=== PATIENT | female | born 1945 | race Caucasian/White ===

== ENCOUNTER → 2016-08-31 | Outpatient (CLI) | payer MEDICARE, OTHER ==
[~2016-08-31] MED LIST: ALPR-475 PO; ASPI-621 PO; ATEN50TA41 PO; ERGO500017 PO; HYDR12.58 PO; IRBE150T25 PO; LEVO75TA33 PO; NAPR500T PO; PRAS10TA4 PO; RITU10VI IV; vitamin b12 IM
== END | disposition home or self-care (01) ==
LOC: RAD 10:18
PROVIDERS: ATTEND Internal Medicine
DX: E27.9 Disorder of adrenal gland, unspecified (principal)
CPT/HCPCS: 71260

== ENCOUNTER → 2016-11-25 | Outpatient (CLI) | payer MEDICARE, OTHER ==
[~2016-11-25] MED LIST changes: +OMNIPAQUE 350 MG/ML, 100ML BOTTLE ONE
== END | disposition home or self-care (01) ==
LOC: CFH 08:41
PROVIDERS: ATTEND Internal Medicine Gastroenterology
DX: E27.9 Disorder of adrenal gland, unspecified (principal); N83.202 Unspecified ovarian cyst, left side; K86.9 Disease of pancreas, unspecified; L05.91 Pilonidal cyst without abscess
CPT/HCPCS: 74177; Q9967